=== PATIENT | male | born 1980 | race Caucasian/White ===

== ENCOUNTER 2021-09-17 11:50 | Emergency (ER) | payer SELFPAY ==
[2021-09-17] MEDS ORDERED: AMOXICILLIN875 MG PO (12:19)
[2021-09-17] MEDS ORDERED: NAPROSYN500 MG PO (12:19)
== END 2021-09-17 12:30 | disposition home or self-care (01) ==
LOC: ER1 11:50
DX: K02.9 Dental caries, unspecified (principal); F17.200 Nicotine dependence, unspecified, uncomplicated
CPT/HCPCS: 99283